=== PATIENT | male | born 1950 | race Caucasian/White ===

== ENCOUNTER 2018-01-08 07:41 | Inpatient (IN) ==
[2018-01-08] MEDS ORDERED: Lisinopril 5 MG Tablet PO ONE (08:01)
--- NOTE | 2018-01-08 08:06 | ED ---
HPI General Chief Complaint: Dizziness Stated Complaint: Vertigo Time Seen by Provider: 01/08/18 07:49 History of Present Illness HPI Narrative: Patient presents to the emergency department complaining of dizziness upon awakening and feeling lightheaded when he attempted to sit up. Patient advises that the room had a spinning sensation and he became diaphoretic. Symptoms began acutely, with nausea whenever he attempted to move too fast but no vomiting, no tinnitus, no slurred speech, no fever chills, no numbness or tingling, no vision change, no shortness of breath, no chest pain. He does report a headache times a few weeks, intermittent, dull in character, alleviated with Tylenol, radiates from occipital area to parietal area. States that 2 months ago he was diagnosed with a sinus headache and given antibiotics which alleviate the headache. Takes lisinopril 5 mg p.o. twice daily but he did not take it this morning. Related Data Home Medications Medication Instructions Recorded Confirmed lisinopril 5 mg PO BID 01/08/18 01/08/18 pravastatin 20 mg PO DAILY 01/08/18 01/08/18 Allergies Allergy/AdvReac Type Severity Reaction Status Date / Time No Known Allergies Allergy Mild Nausea Uncoded 01/08/18 07:53 Review of Systems ROS Unobtainable All other systems reviewed negative except as stated in HPI REPLACED BY [facility] Medical History Medical History Hernia (Acute) Hyperlipemia (Acute) Hypertension (Acute) Social History Social History Substance History: No History of Abuse Smoking Status: Former smoker How Often Do You Have a Drink Containing Alcohol: 2 to 4 times a month Recent Travel in [facility] within the Last 8 Weeks: No Recent Out of Country Travel within the Last 8 Weeks: No Immunization History Tetanus Immunization: <5 Years Hx Influenza Vaccine This Season: Yes Exam Narrative Exam Narrative: GENERAL: No acute distress. SKIN: Focused skin assessment warm/dry. HEAD: Atraumatic. Normocephalic. No frontal or maxillary sinus tenderness. EYES: Extraocular muscles intact bilaterally. No scleral icterus. No injection or drainage. ENT: No nasal bleeding or discharge. Mucous membranes pink and moist. NECK: Trachea midline. No JVD. CARDIOVASCULAR: Regular rate and rhythm. No murmur appreciated. RESPIRATORY: No accessory muscle use. Clear to auscultation. Breath sounds equal bilaterally. GASTROINTESTINAL: Abdomen soft, non-tender, nondistended. Hepatic and splenic margins not palpable. MUSCULOSKELETAL: No obvious deformities. No clubbing. No cyanosis. No edema. NEUROLOGICAL: Awake and alert. No obvious cranial nerve deficits. Motor grossly within normal limits. Normal speech. Positive vertigo when sitting up and moving. PSYCHIATRIC: Appropriate mood and affect; insight and judgment normal. Course Initial Documented Vital Signs Temperature 97.8 F 01/08/18 07:58 Pulse Rate 61 01/08/18 07:58 Respiratory Rate 15 01/08/18 07:58 Blood Pressure 210/93 H 01/08/18 07:58 Pulse Oximetry 97 01/08/18 07:58 Last Documented Vital Signs Temperature 97.8 F 01/08/18 07:58 Pulse Rate 61 01/08/18 07:58 Respiratory Rate 15 01/08/18 07:58 Blood Pressure 188/102 H 01/08/18 09:21 Pulse Oximetry 96 01/08/18 08:43 Medical Decision Making MDM Narrative Medical decision making narrative: Patient presents to the emergency department by EMS secondary to vertigo. Patient placed on a secured entrance monitor, continuous pulse ox, and IV access obtained. Head CT, EKG, chest x-ray, and labs ordered. Patient also given a dose of his BP med that he missed this morning lisinopril 5 mg p.o. and meclizine 25 mg p.o. for vertigo. Head CT and chest x- ray with no acute process. CBC, chem, troponin and urinalysis negative for acute abnormality. Repeat BP 188/102, patient g iven 0.1mg po clonidine, HR in mid to high 50s. Upon my reassessment, patient states that he is still somewhat nauseated and dizzy. He also advises that he has been admitted for difficult to control blood pressure. Once when he presented with hypertension and was given meds to reduce blood pressure, patient states that when he got home he passed out secondary to hypotension. As such, patient will be admitted for observation secondary to hypertensive urgency. Repeat BP at 0946 after clonidine , 177/77. Patient has been admitted for observation to Dr. Arango. Lab Data Result diagrams: 01/08/18 08:20 01/08/18 08:20 Lab Results 01/08/18 01/08/18 01/08/18 Range/Units 08:20 08:20 08:20 WBC 4.5 (4.0-11.0) th/mm3 RBC 4.70 (4.50-5.90) mil/mm3 Hgb 13.6 (13.0-17.0) gm/dL Hct 39.9 (39.0-51.0) % MCV 84.9 (80.0-100.0) fL MCH 29.0 (27.0-34.0) pg MCHC 34.2 (32.0-36.0) % RDW 13.6 (11.6-17.2) % Plt Count 192 (150-450) th/mm3 MPV 9.6 (7.0-11.0) fL Neut % (Auto) 54.3 (16.0-70.0) % Lymph % (Auto) 30.5 (9.0-44.0) % [place] % (Auto) 11.5 H (0.0-8.0) % Eos % (Auto) 2.7 (0.0-4.0) % Baso % (Auto) 1.0 (0.0-2.0) % Neut # (Auto) 2.4 (1.8-7.7) th/mm3 Lymph # (Auto) 1.4 (1.0-4.8) th/mm3 [place] # (Auto) 0.5 (0.0-0.9) th/mm3 Eos # (Auto) 0.1 (0.0-0.4) th/mm3 Baso # (Auto) 0.0 (0.0-0.2) th/mm3 WBC Differential . Differential Comment Auto diff final Sodium 140 (136-145) meq/L Potassium 4.3 (3.5-5.1) meq/L Chloride 106 (98-107) meq/L Carbon Dioxide 27.3 (21.0-32.0) meq/L Anion Gap 7 (5-15) meq/L BUN 13 (7-18) mg/dL Creatinine 1.05 (0.60-1.30) mg/dL Estimated GFR 71 L (>89) mL/min Random Glucose 91 (74-106) mg/dL Calcium 9.1 (8.5-10.1) mg/dL Total Bilirubin 0.5 (0.2-1.0) mg/dL AST 15 (15-37) U/L ALT 24 (12-78) U/L Alkaline Phosphatase 56 (45-117) U/L Troponin I Less than 0.02 L (0.02-0.05) ng/mL Total Protein 6.4 (6.4-8.2) g/dL Albumin 3.5 (3.4-5.0) g/dL Urine Color Yellow (Yellw/Straw) Urine Clarity Hazy H (Clear) Urine pH 6.0 (5.0-8.5) Ur Specific [place] 1.015 (1.002-1.035) Urine Protein Negative (Neg-Trace) mg/dL Urine Glucose (UA) Negative (Negative) mg/dL Urine Ketones Negative (Negative) mg/dL Urine Occult Blood Negative (Negative) Urine Nitrate Negative (Negative) Urine Bilirubin Negative (Negative) Urine Urobilinogen Less than 2 (Less than 2) mg/dL Ur Leukocyte Esterase Negative (Negative) Urine WBC 1 (0-5) /hpf Urine Mucus Few H (Occasional) /lpf Micro UA Comment Culture not ind Urine Culture Comments Culture not ind Imaging Data Radiologist's impression: ITS Impressions Chest X-Ray 01/08/18 08:01 CONCLUSION: Negative examination. Head CT 01/08/18 08:01 CONCLUSION: 1. Negative CT Head non contrast. 2. No evidence of acute infarct, hemorrhage, mass or edema. ECG Data EKG Prior to Arrival: No Attestation: I personally reviewed and interpreted this ECG as follows: (Sinus bradycardia, rate 55, normal axis, normal intervals, QTC 408) Discharge Plan Discharge Disposition Patient Disposition: 30 Still Patient Discharge Condition Condition: Stable Discharge Details Diagnosis: Vertigo, Hypertensive urgency Physicians Team ED Provider: Elissa Jim Primary Care Provider: Valente Crandall Attending Provider: Giacomo Arango Status ED Status: Admitted Observation Patient
--- NOTE | 2018-01-08 08:22 | XR ---
EXAM DATE: 01/08/2018 8:18 AM EDT AGE/SEX: 67 years / Male INDICATIONS: Lightheaded and dizziness. CLINICAL DATA: This is the patient's initial encounter. Patient reports that signs and symptoms have been present for 1 day and indicates a pain score of 0/10. MEDICAL/SURGICAL HISTORY: Hypertension. None. COMPARISON: No prior exams available for comparison. FINDINGS: 2 frontal views of the chest demonstrate the lungs to be symmetrically aerated without evidence of ma ss, infiltrate or effusion. The cardiomediastinal contours are unremarkable. Osseous structures are intact. CONCLUSION: Negative examination. Electronically signed by: Armando Alvarenga MD 01/08/2018 8:21 AM EDT
[2018-01-08 08:34] LABS: Eos # (Auto) 0.1 th/mm3 (0.0-0.4); Eos % (Auto) 2.7 % (0.0-4.0); Hematocrit 39.9 % (39.0-51.0); Hemoglobin 13.6 gm/dL (13.0-17.0); Lymph # (Auto) 1.4 th/mm3 (1.0-4.8); Lymph % (Auto) 30.5 % (9.0-44.0); Mean Corpuscular HGB Conc 34.2 % (32.0-36.0); Mean Corpuscular Volume 84.9 fL (80.0-100.0); Mean Platelet Volume 9.6 fL (7.0-11.0); Mono # (Auto) 0.5 th/mm3 (0.0-0.9); Mono % (Auto) 11.5 % (0.0-8.0); Neut # (Auto) 2.4 th/mm3 (1.8-7.7); Neut % (Auto) 54.3 % (16.0-70.0); Platelet Count 192 th/mm3 (150-450); Red Cell Distribution Width 13.6 % (11.6-17.2); White Blood Count 4.5 th/mm3 (4.0-11.0)
[2018-01-08 08:45] LABS: Bilirubin,Urine Negative (Negative); Clarity,Urine Hazy (Clear); Color,Urine Yellow (Yellw/Straw); Glucose,Urine (UA) Negative (Negative); Leukocyte Esterase,Urine Negative (Negative); Mucus,Urine Few /lpf (Occasional); Nitrite,Urine Negative (Negative); Specific Gravity,Urine 1.015 (1.002-1.035)
--- NOTE | 2018-01-08 08:50 | CT ---
EXAM DATE: 01/08/2018 8:46 AM EDT AGE/SEX: 67 years / Male INDICATIONS: Dizziness and nausea upon waking this morning with high blood pressure. CLINICAL DATA: This is the patient's initial encounter. Patient reports that signs and symptoms have been present for 1 day and indicates a pain score of 2/10. MEDICAL/SURGICAL HISTORY: Hypertension. None. RADIATION DOSE: 56.35 CTDI (mGy) COMPARISON: No prior exams available for comparison. TECHNIQUE: CT of the head without contrast. Using automated exposure control and adjustment of the mA and/or kV according to patient size, radiation dose was kept as low as reasonably achievable to ob tain optimal diagnostic quality images. DICOM format image data is available electronically for revi ew and comparison. FINDINGS: Cerebrum: The ventricles are normal for age. No evidence of midline shift, mass lesion, hemorrhage or acute infarction. No extraaxial fluid collections are seen. Posterior Fossa: The cerebellum and brainstem are intact. The 4th ventricle is midline. The cerebe llopontine angle is unremarkable. Extracranial: The visualized portion of the orbits is intact. Skull: The calvaria is intact. No evidence of skull fracture. CONCLUSION: 1. Negative CT Head non contrast. 2. No evidence of acute infarct, hemorrhage, mass or edema. Electronically signed by: Donny Durbin MD 01/08/2018 8:49 AM EDT
[2018-01-08 08:54] LABS: Albumin 3.5 g/dL (3.4-5.0); Anion Gap 7 meq/L (5-15); Aspartate Aminotransferase 15 U/L (15-37); Blood Urea Nitrogen 13 mg/dL (7-18); Calcium 9.1 mg/dL (8.5-10.1); Carbon Dioxide 27.3 meq/L (21.0-32.0); Chloride 106 meq/L (98-107); Glomerular Filtration Rate 71 mL/min (>89); Glucose,Random 91 mg/dL (74-106); Potassium 4.3 meq/L (3.5-5.1); Sodium 140 meq/L (136-145)
[2018-01-08 08:55] LABS: Alanine Aminotransferase 24 U/L (12-78)
[2018-01-08 08:59] LABS: Alkaline Phosphatase 56 U/L (45-117); Total Protein 6.4 g/dL (6.4-8.2)
--- NOTE | 2018-01-08 10:51 | P.HPIM ---
History of Present Illness Primary Care Physician: Valente Crandall MD Chief Complaint: Dizziness History of Present Illness: Mr Hays is a pleasant 67 y/o male with HTN, hyperlipidemia, GERD, and chronic back pain. Pt present to the ED at [facility] on 01/08/18 with complaints of dizziness and lightheadedness that began this morning upon awakening and when he attempted to sit up. Patient reports that the room was spinning abruptly with multiple attempts at sitting up in bed and he became diaphoretic. Pt experienced associated nausea whenever he attempted to move too fast but no vomiting, no tinnitus, no slurred speech, no fever/chills, no numbness or tingling, no vision change, no shortness of breath, no chest pain. He does report a headache intermittently for the last few weeks which radiates from occipital area to parietal area which was relieved with Tylenol. In the ED the pts BP was significantly elevated at 210/93. Pt normally takes Lisinopril 5mg BID but did not take it that this morning. Pt was given Lisinopril 5mg daily, Meclizine x one dose and Clonidine x one dose in the ED. Pts BP has improved to 166/72. States that 2 months ago he was diagnosed with a sinus headache and given antibiotics which alleviate the headache. 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 His bp was severely elevated. will need to exclude a cerebellar cva. His mother had a pontine cva. The exam, history, and the medical decision-making described in the above note were completed with the assistance of the mid-level provider. I reviewed and agree with the findings presented. I attest that I had a [id number] encounter with the patient on the same day, and personally performed and documented my assessment and findings in the medical record. Inpatient Certification: I certify that the inpatient services were ordered in accordance with Medicare regulations governing the order. This includes certification that hospital inpatient services are reasonable and necessary and in the case of services not specified as inpatient-only under 42 CFR 419.22(n), that they are appropriately provided as inpatient services in accordance to with the 2-midnight benchmark under 43 CFR 412.3(e) Estimated Total Length of Stay (Days): 2 Plans for Post Hospital Care: Not yet determined Review of Systems Constitutional: Denies chills, Denies fever(s), Denies lack of energy, Denies weakness Eyes: Denies change in vision, Denies double vision, Denies loss of vision Ears, Nose, Mouth, and Throat: Denies abnormal hearing, Denies change in voice, Denies ear pain, Denies nasal congestion, Denies sinus pressure, Denies sore throat Cardiovascular: Denies chest pain, Denies irregular heart rhythm, Denies lightheadedness, Denies shortness of breath, Denies shortness of breath with activity Respiratory: Denies cough, Denies shortness of breath, Denies wheezing Gastrointestinal: Reports nausea, Denies abdominal pain, Denies constipation, Denies loose stools, Denies vomiting Genitourinary: Denies urinary frequency, Denies urinary incontinence, Denies urinary urgency Musculoskeletal: Denies back pain, Denies muscle weakness, Denies numbness, Denies tingling Neurologic: Reports dizziness, Reports headache(s), Denies abnormal hearing, Denies abnormal speech, Denies behavioral changes, Denies confusion, Denies lack of coordination, Denies localized weakness, Denies loss of vision, Denies numbness Psychiatric: Denies anxiety, Denies confusion, Denies depression PMFSH - History History Provided By: Patient, [employer] / EMT - Medical History Medical History: Medical History (Last Reviewed 01/08/18 @ 13:59 by Suman Gaytan) Hernia Hyperlipemia Hypertension - Tobacco History Tobacco Use In Past 30 Days: No Smoking Status: Former smoker - Alcohol History How Often Do You Have a Drink Containing Alcohol: 2 to 4 times a month - Substance Use History Substance History: No History of Abuse - Travel History Recent Travel in the [place] Within the Last 8 Weeks: No Recent Travel Out of the Country Within the Last 8 Weeks: No - Immunization History Tetanus Immunization: <5 Years Hx Influenza Vaccine This Season: Yes Medications and Allergies Allergies Allergy/AdvReac Type Severity Reaction Status Date / Time No Known Allergies Allergy Mild Nausea Uncoded 01/08/18 07:53 Home Medications Medication Instructions Recorded Confirmed Type lisinopril 5 mg PO BID 01/08/18 01/08/18 History pravastatin 20 mg PO DAILY 01/08/18 01/08/18 History Active Medications: Active Medications Al Hydroxide/Mg Hydroxide (Milk Of Yessi Buck) 30 ml PO Q12H PRN PRN Reason: Mild Constipation Pravastatin Sodium (Pravachol) 20 mg PO DAILY [place] Senna/Docusate Sodium (Kimber-Colace) 1 tab PO BID [facility] Exam Vital signs: Vital Signs 01/08/18 07:58 01/08/18 08:43 01/08/18 09:21 Temperature 97.8 F Pulse Rate 61 Respiratory Rate 15 Blood Pressure 210/93 H 188/102 H Pulse Oximetry 97 96 01/08/18 10:23 Temperature Pulse Rate Respiratory Rate Blood Pressure 166/72 H Pulse Oximetry Intake & Output 01/07/18 01/08/18 01/08/18 18:59 06:59 18:59 Weight 79.832 kg Narrative: GENERAL: NAD, AAOx3 SKIN: Warm and dry. HEENT: Atraumatic. Normocephalic. Pupils equal and round. No scleral icterus. No injection or drainage. No nasal bleeding or discharge. Mucous membranes pink and moist. NECK: Trachea midline. No JVD. CARDIOVASCULAR: Regular, bradycardia RESPIRATORY: No accessory muscle use. Clear to auscultation. Breath sounds equal bilaterally. GASTROINTESTINAL: Abdomen soft, non-tender, nondistended. Hepatic and splenic margins not palpable. MUSCULOSKELETAL: Extremities without clubbing, cyanosis, or edema. No obvious deformities. NEUROLOGICAL: Awake and alert. No obvious cranial nerve deficits. Motor grossly within normal limits. Five out of 5 muscle strength in the arms and legs. Normal speech. PSYCHIATRIC: Appropriate mood and affect; insight and judgment normal. Results - Labs CBC & Chem 7: 01/09/18 06:03 01/09/18 06:03 Labs: Short CBC 01/08/18 Range/Units 08:20 WBC 4.5 (4.0-11.0) th/mm3 Hgb 13.6 (13.0-17.0) gm/dL Hct 39.9 (39.0-51.0) % Plt Count 192 (150-450) th/mm3 [facility] 01/08/18 08:20 Sodium 140 Potassium 4.3 Chloride 106 Carbon Dioxide 27.3 BUN 13 Creatinine 1.05 Calcium 9.1 Cardiac Enzymes 01/08/18 Range/Units 08:20 Troponin I Less than 0.02 L (0.02-0.05) ng/mL Liver Function 01/08/18 Range/Units 08:20 Total Bilirubin 0.5 (0.2-1.0) mg/dL AST 15 (15-37) U/L ALT 24 (12-78) U/L Alkaline Phosphatase 56 (45-117) U/L Albumin 3.5 (3.4-5.0) g/dL Urine 01/08/18 Range/Units 08:20 Urine Color Yellow (Yellw/Straw) Urine Clarity Hazy H (Clear) Urine pH 6.0 (5.0-8.5) Ur Specific [place] 1.015 (1.002-1.035) Urine Protein Negative (Neg-Trace) mg/dL Urine Glucose (UA) Negative (Negative) mg/dL - Imaging Impressions Chest X-Ray 01/08/18 08:01 CONCLUSION: Negative examination. Head CT 01/08/18 08:01 CONCLUSION: 1. Negative CT Head non contrast. 2. No evidence of acute infarct, hemorrhage, mass or edema. Caprini VTE Risk Assessment Caprini VTE Risk Assessment: Moderate/High Risk (score >= 2) Caprini Risk Assessment Model: Point Value = 1 Point Value = 2 Point Value = 3 Point Value = 5 Age 41-60 Minor surgery BMI > 25 kg/m2 Swollen legs Varicose veins or History of unexplained or recurrent spontaneous Oral contraceptives or hormone replacement Sepsis (< 1 month) Serious lung disease, including pneumonia (< 1 month) Abnormal pulmonary function Acute myocardial infarction Congestive heart failure (< 1 month) History of inflammatory bowel disease Medical patient at bed rest Age 61-74 Arthroscopic surgery Major open surgery (> 45 min) Laparoscopic surgery (> 45 min) Malignancy Confined to bed (> 72 hours) Immobilizing plaster cast Central venous access Age >= 75 History of VTE Family history of VTE Factor V Leiden Prothrombin [id number] Lupus anticoagulant Anticardiolipin antibodies Elevated serum homocysteine Heparin-induced thrombocytopenia Other congenital or acquired thrombophilia Stroke (< 1 month) Elective arthroplasty Hip, pelvis, or leg fracture Acute spinal cord injury (< 1 month) Prophylaxis Regimen: Total Risk Factor Score Risk Level Prophylaxis Regimen 0-1 Low Early ambulation 2 Moderate Order ONE of the following: *Sequential Compression Device (SCD) *Heparin 5000 units SQ BID 3-4 Higher Order ONE of the following medications: *Heparin 5000 units SQ TID *Enoxaparin/Lovenox 40 mg SQ daily (WT < 150 kg, CrCl > 30 mL/min) *Enoxaparin/Lovenox 30 mg SQ daily (WT < 150 kg, CrCl > 10-29 mL/min) *Enoxaparin/Lovenox 30 mg SQ BID (WT < 150 kg, CrCl > 30 mL/min) AND/OR *Sequential Compression Device (SCD) 5 or more Highest Order ONE of the following medications: *Heparin 5000 units SQ TID (Preferred with Epidurals) *Enoxaparin/Lovenox 40 mg SQ daily (WT < 150 kg, CrCl > 30 mL/min) *Enoxaparin/Lovenox 30 mg SQ daily (WT < 150 kg, CrCl > 10-29 mL/min) *Enoxaparin/Lovenox 30 mg SQ BID (WT < 150 kg, CrCl > 30 mL/min) AND *Sequential Compression Device (SCD)
[2018-01-08] MEDS ORDERED: Acetaminophen 325 MG Tablet PO PRN (13:17)
[2018-01-08] MEDS: Sod Chloride 0.9% Inj 1,000 ML IV.CONT SCH (14:33)
--- NOTE | 2018-01-08 14:58 | MR ---
EXAM DATE: 01/08/2018 2:50 PM EDT AGE/SEX: 67 years / Male INDICATIONS: Vertigo. CLINICAL DATA: This is the patient's initial encounter. Patient reports that signs and symptoms have been present for 1 day and indicates a pain score of 0/10. MEDICAL/SURGICAL HISTORY: Hypercholesterolemia. Inguinal hernia repair. Tonsillectomy. [place] [facility]AST, 01/08/2018. . TECHNIQUE: 3D [id number] MRA was performed. Source images, multiplanar STS MIP, and 3D volum e MIP reconstructions were reviewed. FINDINGS: There is excellent visualization of the major intracranial arteries out to the second-order branch ve ssels. Mild luminal irregularity is identified in the carotid siphons. The intracranial vessels otherwise demonstrate smooth luminal margins without significant steno-occlu sive disease. There is no evidence of aneurysm, vascular malformation or vasculopathy. There is no evidence of mass effect. CONCLUSION: 1. Mild atherosclerotic vascular disease involving the carotid siphons. 2. Otherwise unremarkable exam without evidence of steno-occlusive disease, aneurysm, vascular malfo rmation or vasculopathy. Electronically signed by: Donny Durbin MD 01/08/2018 2:57 PM EDT
[2018-01-08] MEDS ORDERED: Gadobutrol PF 10 MMOL/10 ML Vial (for RAD) IV.SIG ONE (14:59)
--- NOTE | 2018-01-08 14:59 | MR ---
EXAM DATE: 01/08/2018 2:51 PM EDT AGE/SEX: 67 years / Male INDICATIONS: Vertigo. CLINICAL DATA: This is the patient's initial encounter. Patient reports that signs and symptoms have been present for 1 day and indicates a pain score of 0/10. MEDICAL/SURGICAL HISTORY: Hypercholesterolemia. Skin CA. Inguinal hernia repair. Tonsillectom y. COMPARISON: No prior exams available for comparison. TECHNIQUE: Multiplanar, multisequence examination of the brain was performed without contrast. FINDINGS: MRI of the brain is performed in sagittal, axial and coronal planes. The craniocervical junction and midline structures are unremarkable. Diffusion weighted images demonstrate no abnormality. No acute c ortical infarction, acute hemorrhage, mass effect or midline shift is seen. Posterior fossa structure s are unremarkable. CONCLUSION: No evidence of acute intracranial pathology. No masses are identified. Electronically signed by: John Pedersen MD 01/08/2018 2:58 PM EDT
--- NOTE | 2018-01-08 15:02 | MR ---
EXAM DATE: 01/08/2018 2:50 PM EDT AGE/SEX: 67 years / Male INDICATIONS: Vertigo. CLINICAL DATA: This is the patient's initial encounter. Patient reports that signs and symptoms have been present for 1 day and indicates a pain score of 0/10. MEDICAL/SURGICAL HISTORY: Hypercholesterolemia. Skin CA. Inguinal hernia repair. Tonsillectom y. COMPARISON: No prior exams available for comparison. TECHNIQUE: 10 ml Gadavist (gadobutrol) contrast infused MRA (single exam dose) of the extracranial circulation was performed using a neurovascular coil. Postprocessing was performed, including rotati ng sub-volume maximum intensity projections of each carotid artery, rotating full-volume maximum inte nsity projections of both carotid arteries, sagittal and coronal sliding thin-slab reformations of ea ch carotid artery, and left oblique sliding thin-slab reformation through the aortic arch to include the origin of the arch branch vessels. FINDINGS: No abnormality is identified within the lung apices. There is normal origin of vessels from the arch without evidence of proximal stenosis. Vertebral arteries are codominant. Examination of the right common carotid artery demonstrates the vessel to be widely patent. There is 0-10% stenosis at the origin of the internal carotid artery. More distally the cervical internal puga tid artery is intact. Examination of the left common carotid artery demonstrates the vessel to be widely patent. There is 1 0-20% stenosis just beyond the origin of the left internal carotid artery origin. More distally the c ervical internal carotid artery is intact. CONCLUSION: There is 10-20% stenosis on the left. There is 0-10% stenosis on the right. No hemodynamically signif icant lesion. Percent stenosis is calculated using the diameter of the stenotic region over the diameter of the nor mal distal internal carotid artery Electronically signed by: John Pedersen MD 01/08/2018 3:01 PM [place]
--- NOTE | 2018-01-08 19:23 | ECG ---
Date Performed: 01/08/2018 Time Performed: 08:20:15 PTAGE: 67 years EKG: SINUS BRADYCARDIA BORDERLINE ECG PREVIOUS TRACING : 03/28/2006 04.52 Since the previous tracing, no significant change noted DOCTOR: Job Sanchez Interpretating Date/Time 01/08/2018 19:21:22
[2018-01-08] MEDS: Senna/Docusate Sodium 8.6/50 MG Tablet PO SCH (22:34)
[2018-01-08] MEDS: Lisinopril 5 MG Tablet PO SCH (22:34)
[2018-01-09 07:16] LABS: Baso % (Auto) 0.8 % (0.0-2.0); Eos # (Auto) 0.1 th/mm3 (0.0-0.4); Eos % (Auto) 2.7 % (0.0-4.0); Hematocrit 38.1 % (39.0-51.0); Hemoglobin 12.6 gm/dL (13.0-17.0); Lymph # (Auto) 1.3 th/mm3 (1.0-4.8); Lymph % (Auto) 28.3 % (9.0-44.0); Mean Corpuscular HGB Conc 33.2 % (32.0-36.0); Mean Corpuscular Hemoglobin 28.4 pg (27.0-34.0); Mean Corpuscular Volume 85.7 fL (80.0-100.0); Mean Platelet Volume 9.3 fL (7.0-11.0); Mono # (Auto) 0.5 th/mm3 (0.0-0.9); Mono % (Auto) 10.1 % (0.0-8.0); Neut # (Auto) 2.7 th/mm3 (1.8-7.7); Neut % (Auto) 58.1 % (16.0-70.0); Platelet Count 185 th/mm3 (150-450); Red Blood Count 4.44 mil/mm3 (4.50-5.90); Red Cell Distribution Width 14.1 % (11.6-17.2); White Blood Count 4.6 th/mm3 (4.0-11.0)
[2018-01-09] MEDS: Sod Chloride 0.9% Inj 1,000 ML IV.CONT SCH (07:32)
[2018-01-09 07:41] LABS: Alanine Aminotransferase 22 U/L (12-78); Albumin 2.9 g/dL (3.4-5.0); Alkaline Phosphatase 46 U/L (45-117); Anion Gap 8 meq/L (5-15); Aspartate Aminotransferase 10 U/L (15-37); Blood Urea Nitrogen 9 mg/dL (7-18); Calcium 8.2 mg/dL (8.5-10.1); Carbon Dioxide 25.6 meq/L (21.0-32.0); Chloride 111 meq/L (98-107); Glomerular Filtration Rate 88 mL/min (>89); Glucose,Random 90 mg/dL (74-106); Potassium 4.4 meq/L (3.5-5.1); Sodium 145 meq/L (136-145); Total Protein 5.5 g/dL (6.4-8.2)
[2018-01-09] MEDS ORDERED: Pantoprazole Sodium 20 MG DR Tablet PO SCH (09:00)
[2018-01-09] MEDS: Lisinopril 5 MG Tablet PO SCH (09:15)
[2018-01-09] MEDS: Senna/Docusate Sodium 8.6/50 MG Tablet PO SCH (09:15)
--- NOTE | 2018-01-09 10:27 | P.PNIM ---
Subjective Interval history: vertigo improved but not resolved. Physical Exam Vital signs: Vital Signs 01/08/18 10:23 01/08/18 12:08 01/08/18 14:34 Temperature Pulse Rate 52 L Respiratory Rate 18 Blood Pressure 166/72 H 137/62 158/71 H Pulse Oximetry 98 01/08/18 17:56 01/08/18 20:00 01/09/18 00:00 Temperature 97.7 F 97.6 F Pulse Rate 56 L 50 L 45 L Respiratory Rate 18 18 Blood Pressure 146/68 H 135/63 Pulse Oximetry 98 98 01/09/18 04:00 01/09/18 08:00 Temperature 97.7 F 97.3 F L Pulse Rate 53 L 62 Respiratory Rate 18 16 Blood Pressure 129/67 155/83 H Pulse Oximetry 97 97 Intake & Output 01/08/18 01/09/18 01/09/18 18:59 06:59 18:59 Intake Total 1480 / 1480 Output Total 600 / 600 Balance 880 / 880 Weight 79.832 kg 73.9 kg Intake: IV 1000 / 1000 NS Inj 1,000 ML @ 84 mls/hr IV. 1000 / 1000 CONT .[id number] [facility] Rx#:[id number] Oral 480 / 480 Output: Urine 600 / 600 Other: # Voids 2 Weight On Admission 79.832 kg heart reg lung cta abd s/nt ext no edema Results - Labs CBC & Chem 7: 01/09/18 06:03 01/09/18 06:03 Laboratory Results - last 24 hr 01/09/18 01/09/18 06:03 06:03 WBC 4.6 RBC 4.44 L Hgb 12.6 L Hct 38.1 L MCV 85.7 MCH 28.4 MCHC 33.2 RDW 14.1 Plt Count 185 MPV 9.3 Neut % (Auto) 58.1 Lymph % (Auto) 28.3 [place] % (Auto) 10.1 H Eos % (Auto) 2.7 Baso % (Auto) 0.8 Neut # (Auto) 2.7 Lymph # (Auto) 1.3 [place] # (Auto) 0.5 Eos # (Auto) 0.1 Baso # (Auto) 0.0 WBC Differential . Differential Comment Auto diff final Sodium 145 Potassium 4.4 Chloride 111 H Carbon Dioxide 25.6 Anion Gap 8 BUN 9 Creatinine 0.87 Estimated GFR 88 L Random Glucose 90 Calcium 8.2 L D Total Bilirubin 0.4 AST 10 L ALT 22 Alkaline Phosphatase 46 Total Protein 5.5 L D Albumin 2.9 L D - Imaging Impressions Head MRI 01/08/18 00:00 CONCLUSION: No evidence of acute intracranial pathology. No masses are identified. Head MRA 01/08/18 00:00 CONCLUSION: 1. Mild atherosclerotic vascular disease involving the carotid siphons. 2. Otherwise unremarkable exam without evidence of steno-occlusive disease, aneurysm, vascular malformation or vasculopathy. Neck MRA 01/08/18 00:00 CONCLUSION: There is 10-20% stenosis on the left. There is 0-10% stenosis on the right. No hemodynamically significant lesion. Percent stenosis is calculated using the diameter of the stenotic region over the diameter of the normal distal internal carotid artery Assessment and Plan - Assessment (1) Vertigo Code(s): R42 - Dizziness and giddiness Status: Acute Plan: Vertigo - The pt is a 67 y/o male with HTN, hyperlipidemia, GERD, and chronic back pain. - [place] [facility] [place] with complaints of dizziness and lightheadedness that began this morning upon awakening with the room spinning abruptly with multiple attempts at sitting up in bed and he became diaphoretic. Pt experienced associated nausea - In the ED the pts BP was significantly elevated at 210/93. - Pt was given Lisinopril 5mg daily, Meclizine x one dose and Clonidine x one dose in the ED. Pts BP has improved to 166/72. - He has had some intermittent headaches and has family hx of basilar CVA - Given his age and comorbid HTN and hyperlipidemia as well as family hx we will need to r/o cerebellar CVA - Check MRI/MRA head and neck - Keep pt on telemetry - IVF - mri/a brain and neck negative for acute cva or vascular occlusion stop ivf cont meclizine ambulate with assist and reevaluate for dc HTN Hypertensive urgency - Pts BP was quite elevated at admission. This may be related to his vertigo/ nausea and not having had his BP meds this morning but will need to r/o CVA - Pt was given Lisinopril and Clonidine in the ED and BP has improved - We will resume his dose of Lisinopril f Hyperlipidemia - Cont .home meds GERD - PPI (2) Hypertensive urgency Code(s): I16.0 - Hypertensive urgency Status: Acute (3) HTN (hypertension) Code(s): I10 - Essential (primary) hypertension Status: Acute (4) Hyperlipidemia Code(s): E78.5 - Hyperlipidemia, unspecified Status: Acute (5) GERD (gastroesophageal reflux disease) Code(s): K21.9 - Gastro-esophageal reflux disease without esophagitis Status: Acute
== END 2018-01-09 11:58 | disposition home or self-care (01) ==
LOC: NEDA 07:41 → NEPE 07:41 → N04 16:24
PROVIDERS: ADMIT Hospitalist; ATTEND Hospitalist

== ENCOUNTER 2018-06-07 13:23 | Inpatient (IN) ==
[2018-06-07] MEDS ORDERED: Morphine Inj 4 MG/ML Vial IV.PUSH ONE (13:37)
[2018-06-07 13:50] LABS: Baso % (Auto) 0.4 % (0.0-2.0); Eos % (Auto) 0.5 % (0.0-4.0); Hematocrit 39.2 % (39.0-51.0); Hemoglobin 13.4 gm/dL (13.0-17.0); Lymph # (Auto) 1.3 th/mm3 (1.0-4.8); Mean Corpuscular HGB Conc 34.3 % (32.0-36.0); Mean Corpuscular Volume 87.4 fL (80.0-100.0); Mono # (Auto) 0.6 th/mm3 (0.0-0.9); Mono % (Auto) 7.6 % (0.0-8.0); Neut # (Auto) 5.7 th/mm3 (1.8-7.7); Neut % (Auto) 74.5 % (16.0-70.0); Platelet Count 184 th/mm3 (150-450); Red Blood Count 4.49 mil/mm3 (4.50-5.90); Red Cell Distribution Width 13.7 % (11.6-17.2); White Blood Count 7.6 th/mm3 (4.0-11.0)
--- NOTE | 2018-06-07 14:01 | ED ---
HPI General Chief complaint: Chest Pain Stated complaint: chest tightness Time Seen by Provider: 06/07/18 13:36 History of Present Illness HPI narrative: 67-year-old male with history of hypertension and hyperlipidemia presents via EMS for evaluation of chest pain. Symptoms started yesterday at 4 PM while he was surfing. He describes it as a substernal chest pressure which was mild throughout the evening yesterday. Symptoms persisted this morning which prompted evaluation. He reports that he also feels "funny." He received nitro, 2 sublingual nitroglycerin en route. He reports that symptoms improved from a 6 out of 10 to a 3 out of 10. He also notes that his blood pressure was elevated in the 200/100 range this morning. He denies shortness of breath, cough, congestion, nausea, vomiting, abdominal pain, headache, dizziness, blurred vision. Reports extensive family history of coronary artery disease. No other complaints. Related Data Home Medications Medication Instructions Recorded Confirmed lisinopril 5 mg PO BID 01/08/18 06/07/18 pravastatin 20 mg PO DAILY 01/08/18 06/07/18 Allergies Allergy/AdvReac Type Severity Reaction Status Date / Time No Known Allergies Allergy Verified 06/07/18 13:39 Review of Systems ROS: all other systems reviewed are negative [facility] Medical History Medical History Skin cancer (Acute) Hernia (Acute) Hyperlipemia (Acute) Hypertension (Acute) Social History Social History Substance History: No History of Abuse Second Hand Smoke Exposure: No Smoking Status: Former smoker Tobacco Type: Cigarettes How Often Do You Have a Drink Containing Alcohol: 4 or more times a week Recent Travel in [facility] within the Last 8 Weeks: No Recent Out of Country Travel within the Last 8 Weeks: No Immunization History Tetanus Immunization: Unsure Exam Narrative Exam Narrative: GENERAL: Well-developed well-nourished male in no acute distress SKIN: Warm and dry. HEAD: Atraumatic. Normocephalic. EYES: Pupils equal and round. No scleral icterus. No injection or drainage. ENT: No nasal bleeding or discharge. Mucous membranes pink and moist. NECK: Trachea midline. No JVD. CARDIOVASCULAR: Regular rate and rhythm. No murmur appreciated. RESPIRATORY: No accessory muscle use. Clear to auscultation. Breath sounds equal bilaterally. GASTROINTESTINAL: Abdomen soft, non-tender, nondistended. Hepatic and splenic margins not palpable. MUSCULOSKELETAL: No obvious deformities. No clubbing. No cyanosis. No edema. NEUROLOGICAL: Awake and alert. No obvious cranial nerve deficits. Motor grossly within normal limits. Normal speech. PSYCHIATRIC: Appropriate mood and affect; insight and judgment normal. Course Initial Documented Vital Signs Pulse Rate 75 06/07/18 13:32 Respiratory Rate 14 06/07/18 13:32 Blood Pressure 200/91 H 06/07/18 13:32 Pulse Oximetry 98 06/07/18 13:32 Last Documented Vital Signs Pulse Rate 67 06/07/18 15:15 Respiratory Rate 15 06/07/18 15:15 Blood Pressure 180/84 H 06/07/18 15:15 Pulse Oximetry 99 06/07/18 15:15 Medical Decision Making JOSE Attestation JOSE supervised visit: Yes Attestation: I, Dr. Herrmann, have reviewed the advance practice practitioner's documentation and am in agreement, met with the patient face to face, made the diagnosis, and the medical decision making was done by me. *My assessment and Findings: Pt with NSTEMI, Tn 3. Pt is hemodynamically normal with managed CP in ED. Plan for admission with IV heparin. Call to Dr Roy of cardiology pending, likely cath today. MDM Narrative Medical decision making narrative: The patient was placed on ECG monitoring pulse oximetry. A 12-lead EKG was obtained revealing sinus rhythm with a rate of 64, T wave inversions noted in the septal leads. No ST elevation. Lab work , chest x-ray ordered. The patient will be given 1 additional sublingual nitroglycerin as well as morphine. Upon reexamination blood pressure is improved, pain is nearly completely resolved. His lab work is been reviewed. Troponin is greater than 3, most consistent with nstemi in the presence of his symptoms. Heparin bolus/drip initiated. He denies any recent bleeding, black or tarry stools. He will be admitted, cardiology consult. Medical Screen Exam Complete: Yes Emergency Medical Condition: Yes Differential Diagnosis Differential Diagnosis: Acute coronary syndrome, angina, aortic dissection, hypertensive urgency, pneumothorax, pericarditis, myocarditis Lab Data Result diagrams: 06/07/18 13:35 06/07/18 13:35 Lab Results 06/07/18 06/07/18 06/07/18 Range/Units 13:35 13:35 13:35 WBC 7.6 (4.0-11.0) th/mm3 RBC 4.49 L (4.50-5.90) mil/mm3 Hgb 13.4 (13.0-17.0) gm/dL Hct 39.2 (39.0-51.0) % MCV 87.4 (80.0-100.0) fL MCH 30.0 (27.0-34.0) pg MCHC 34.3 (32.0-36.0) % RDW 13.7 (11.6-17.2) % Plt Count 184 (150-450) th/mm3 MPV 9.0 (7.0-11.0) fL Neut % (Auto) 74.5 H (16.0-70.0) % Lymph % (Auto) 17.0 (9.0-44.0) % [place] % (Auto) 7.6 (0.0-8.0) % Eos % (Auto) 0.5 (0.0-4.0) % Baso % (Auto) 0.4 (0.0-2.0) % Neut # (Auto) 5.7 (1.8-7.7) th/mm3 Lymph # (Auto) 1.3 (1.0-4.8) th/mm3 [place] # (Auto) 0.6 (0.0-0.9) th/mm3 Eos # (Auto) 0.0 (0.0-0.4) th/mm3 Baso # (Auto) 0.0 (0.0-0.2) th/mm3 WBC Differential . Differential Comment Auto diff final PT 10.4 (9.8-11.6) sec INR 1.0 Ratio APTT 25.4 (23.4-31.7) sec Sodium 136 (136-145) meq/L Potassium 4.1 (3.5-5.1) meq/L Chloride 101 (98-107) meq/L Carbon Dioxide 31.1 (21.0-32.0) meq/L Anion Gap 4 L (5-15) meq/L BUN 9 (7-18) mg/dL Creatinine 1.15 (0.60-1.30) mg/dL Estimated GFR 64 L (>89) mL/min Random Glucose 125 H (74-106) mg/dL Calcium 8.4 L (8.5-10.1) mg/dL Magnesium 2.1 (1.5-2.5) mg/dL Total Bilirubin 0.3 (0.2-1.0) mg/dL AST 29 (15-37) U/L ALT 27 (12-78) U/L Alkaline Phosphatase 61 (45-117) U/L Total Creatine Kinase 278 (39-308) U/L CK-MB (CK-2) 12.5 H (0.5-3.6) ng/mL Troponin I 3.30 H* (0.02-0.05) ng/mL Total Protein 6.6 (6.4-8.2) g/dL Albumin 3.5 (3.4-5.0) g/dL Imaging Data Radiologist's impression: Chest X-Ray 06/07/18 13:37 CONCLUSION: Negative for acute process Discharge Plan Discharge Disposition Patient Disposition: ED Admit(ED Internal Use Only) Discharge Condition Condition: Stable Discharge Order Discharge Orders: ED Use Only Admit Order (Routine); Ordered 06/07/18 Ordered By: Wai Ribeiro Discharge Details Diagnosis: Non-ST elevation [place] (NSTEMI) Physicians Team ED Provider: Srini Gracia ED Midlevel Provider: Wai Ribeiro Primary Care Provider: Valente Crandall Rxs /Orders / Referrals /Forms Prescriptions: No Action pravastatin 20 mg Tablet 20 mg PO DAILY RF: 0 lisinopril 5 mg Tablet 5 mg PO BID RF: 0 Discharge Instructions Patient Printed Instructions: Chest Pain (ED) Status ED Status: With Doctor
[2018-06-07 14:09] LABS: Alanine Aminotransferase 27 U/L (12-78); Albumin 3.5 g/dL (3.4-5.0); Anion Gap 4 meq/L (5-15); Aspartate Aminotransferase 29 U/L (15-37); Blood Urea Nitrogen 9 mg/dL (7-18); Calcium 8.4 mg/dL (8.5-10.1); Carbon Dioxide 31.1 meq/L (21.0-32.0); Chloride 101 meq/L (98-107); Glomerular Filtration Rate 64 mL/min (>89); Glucose,Random 125 mg/dL (74-106); Magnesium 2.1 mg/dL (1.5-2.5); Potassium 4.1 meq/L (3.5-5.1); Sodium 136 meq/L (136-145)
[2018-06-07 14:13] LABS: Alkaline Phosphatase 61 U/L (45-117); Creatine Kinase 278 U/L (39-308); Total Protein 6.6 g/dL (6.4-8.2)
--- NOTE | 2018-06-07 14:23 | XR ---
EXAM DATE: 06/07/2018 2:14 PM EST AGE/SEX: 67 years / Male INDICATIONS: Chest pain and hypertension. CLINICAL DATA: This is the patient's subsequent encounter. Patient reports that signs and symptoms h ave been present for 2 days and indicates a pain score of 3/10. MEDICAL/SURGICAL HISTORY: Hypertension. None. COMPARISON: [facility] [place] 1[place] SINGLE AP, 01/08/2018. . FINDINGS: A single AP view of the chest demonstrates the lungs to be symmetrically aerated without evidence of mass, infiltrate or effusion. The cardiomediastinal contours are unremarkable. Osseous structures a re intact. CONCLUSION: Negative for acute process Electronically signed by: Alfredo Simms MD 06/07/2018 2:21 PM EST
[2018-06-07 14:36] LABS: Creatine Kinase MB 12.5 ng/mL (0.5-3.6)
[2018-06-07] MEDS ORDERED: Heparin Drip 25,000 UNIT/250 ML BAG IV.CONT PRN (14:41)
[2018-06-07] MEDS ORDERED: Heparin 10,000 UNITS/10 ML Vial (for IV use) IV.PUSH STA (14:41)
[2018-06-07 14:59] LABS: Activated Partial Thrombo Time 25.4 sec (23.4-31.7); Prothrombin Time 10.4 sec (9.8-11.6)
[2018-06-07] MEDS ORDERED: Acetaminophen 325 MG Tablet PO PRN (15:50)
--- NOTE | 2018-06-07 15:56 | P.HPIM ---
History of Present Illness Primary Care Physician: Valente Crandall MD Chief Complaint: chest pain History of Present Illness: Mr Hays is a pleasant 67 y/o male with HTN, hyperlipidemia, GERD, and chronic back pain. Pt present to the ED for evaluation of chest pain. Symptoms started yesterday at 4 PM while he was surfing. He describes it as a constant substernal chest pressure which was mild throughout the evening yesterday. Symptoms persisted this morning which prompted evaluation. He reports he does not feel like himself. He received nitro, 2 sublingual nitroglycerin en route. He reports that symptoms improved from a 6 out of 10 to a 3 out of 10. He also notes that his blood pressure was elevated in the 200/100 range this morning. He denies shortness of breath, cough, congestion, nausea, vomiting, abdominal pain, headache, dizziness, blurred vision. Reports extensive family history of coronary artery disease. No other complaints. EKG on admission: sinus rhythm with a rate of 64, T wave inversions noted in the septal leads. No ST elevation. Troponin on admission: 3.30 Past Medical hx HTN Hyperlipidemia GERD Chronic back pain Shoulder pain Hx of sciatica Past Surgical Hx None Family Hx Mother had a basilar artery CVA at 48 y/o Social Hx (+)Alcohol, one glass of red wine per night Denies any tobacco or illicit drug use Inpatient Certification Inpatient Certification: I certify that the inpatient services were ordered in accordance with Medicare regulations governing the order. This includes certification that hospital inpatient services are reasonable and necessary and in the case of services not specified as inpatient-only under 42 CFR 419.22(n), that they are appropriately provided as inpatient services in accordance to with the 2-midnight benchmark under 43 CFR 412.3(e) Estimated Total Length of Stay (Days): 3 Plans for Post Hospital Care: Home Medications and Allergies Allergies Allergy/AdvReac Type Severity Reaction Status Date / Time No Known Allergies Allergy Verified 06/07/18 13:39 Home Medications Medication Instructions Recorded Confirmed Type lisinopril 5 mg PO BID 01/08/18 06/07/18 History pravastatin 20 mg PO DAILY 01/08/18 06/07/18 History Active Medications: Active Medications Acetaminophen (Tylenol) 650 mg PO Q4H PRN PRN Reason: Temp > 100.4 Al Hydroxide/Mg Hydroxide (Milk Of Magnesia Liq) 30 ml PO Q12H PRN PRN Reason: Mild Constipation Aspirin (Aspirin) 325 mg PO DAILY [facility] Heparin Sodium/Dextrose (Heparin/D5w 25,000 U/250 Ml) 25,000 unit in 250 mls @ 0 mls/hr IV.CONT TITRATE PRN; Protocol PRN Reason: Per Protocol Last Admin: 06/07/18 15:15 Dose: 900 units/hr, 9 mls/hr Sodium Chloride (Ns Inj) 1,000 mls @ 75 mls/hr IV.CONT .[id number] [facility] Ondansetron HCl (Zofran Inj) 4 mg IV.PUSH Q6H PRN PRN Reason: NAUSEA OR VOMITING Senna/Docusate Sodium (Kimber-Colace) 1 tab PO BID [facility] Sennosides (Senokot) 17.2 mg PO Q12H PRN PRN Reason: Moderate Constipation Sodium Chloride (Ns Flush) 2 ml IV.FLUSH UNSCH PRN PRN Reason: FLUSH AFTER USING IV ACCESS Last Admin: 06/07/18 13:54 Dose: 2 ml Sodium Chloride (Ns Flush) 2 ml IV.FLUSH BID [place] Sodium Chloride (Ns Flush) 2 ml IV.FLUSH PRN PRN PRN Reason: FLUSH AFTER USING IV ACCESS Physical Exam Vital signs: Last Vital Signs Pulse 67 06/07/18 15:15 Resp 15 06/07/18 15:15 BP 180/84 H 06/07/18 15:15 Pulse Ox 99 06/07/18 15:15 Narrative: GENERAL: This is a well-nourished, well-developed patient, in no apparent distress. CARDIOVASCULAR: Regular rate and rhythm RESPIRATORY: Clear to auscultation. Breath sounds equal bilaterally. No wheezes , rales, or rhonchi. GASTROINTESTINAL: Abdomen soft, non-tender, nondistended. Normal active bowel sounds MUSCULOSKELETAL: Extremities without clubbing, cyanosis, or edema. NEURO: Alert & Oriented x4 to person, place, time, situation. Moves all ext x4 Results Labs CBC & Chem 7: 06/07/18 13:35 06/07/18 13:35 Caprini VTE Risk Assessment Caprini VTE Risk Assessment: No/Low Risk (score <= 1) Caprini Risk Assessment Model: Point Value = 1 Point Value = 2 Point Value = 3 Point Value = 5 Age 41-60 Minor surgery BMI > 25 kg/m2 Swollen legs Varicose veins or History of unexplained or recurrent spontaneous Oral contraceptives or hormone replacement Sepsis (< 1 month) Serious lung disease, including pneumonia (< 1 month) Abnormal pulmonary function Acute myocardial infarction Congestive heart failure (< 1 month) History of inflammatory bowel disease Medical patient at bed rest Age 61-74 Arthroscopic surgery Major open surgery (> 45 min) Laparoscopic surgery (> 45 min) Malignancy Confined to bed (> 72 hours) Immobilizing plaster cast Central venous access Age >= 75 History of VTE Family history of VTE Factor V Leiden Prothrombin [id number] Lupus anticoagulant Anticardiolipin antibodies Elevated serum homocysteine Heparin-induced thrombocytopenia Other congenital or acquired thrombophilia Stroke (< 1 month) Elective arthroplasty Hip, pelvis, or leg fracture Acute spinal cord injury (< 1 month) Prophylaxis Regimen: Total Risk Factor Score Risk Level Prophylaxis Regimen 0-1 Low Early ambulation 2 Moderate Order ONE of the following: *Sequential Compression Device (SCD) *Heparin 5000 units SQ BID 3-4 Higher Order ONE of the following medications: *Heparin 5000 units SQ TID *Enoxaparin/Lovenox 40 mg SQ daily (WT < 150 kg, CrCl > 30 mL/min) *Enoxaparin/Lovenox 30 mg SQ daily (WT < 150 kg, CrCl > 10-29 mL/min) *Enoxaparin/Lovenox 30 mg SQ BID (WT < 150 kg, CrCl > 30 mL/min) AND/OR *Sequential Compression Device (SCD) 5 or more Highest Order ONE of the following medications: *Heparin 5000 units SQ TID (Preferred with Epidurals) *Enoxaparin/Lovenox 40 mg SQ daily (WT < 150 kg, CrCl > 30 mL/min) *Enoxaparin/Lovenox 30 mg SQ daily (WT < 150 kg, CrCl > 10-29 mL/min) *Enoxaparin/Lovenox 30 mg SQ BID (WT < 150 kg, CrCl > 30 mL/min) AND *Sequential Compression Device (SCD) Assessment and Plan Plan Mr Hays is a pleasant 67 y/o male with HTN, hyperlipidemia, GERD, and chronic back pain. Pt present to the ED for evaluation of chest pain. Symptoms started yesterday at 4 PM while he was surfing. He describes it as a constant substernal chest pressure which was mild throughout the evening yesterday. Symptoms persisted this morning which prompted evaluation. He reports that he not like himself. He received nitro, 2 sublingual nitroglycerin en route. He reports that symptoms improved from a 6 out of 10 to a 3 out of 10. He also notes that his blood pressure was elevated in the 200/100 range this morning. Patient also reports that he increased his bench press weight recently also. He denies shortness of breath, cough, congestion, nausea, vomiting, abdominal pain, headache, dizziness, blurred vision. Reports extensive family history of coronary artery disease. No other complaints. NSTEMI EKG on admission: sinus rhythm with a rate of 64, T wave inversions noted in the septal leads. No ST elevation. Troponin on admission: 3.30 Heparin drip started in ER, continue Consult cardiology, ER provider spoke with cardiology - Patient NPO after midnight plan to take to center medical and lab director in AM serial troponin aspirin now and daily Metoprolol 25 mg PO BID Nitro paste Lipid profile in AM HTN Continue home lisinopril 5 mg daily Hyperlipidemia continue patient's home pravastatin 20 mg PO daily Lipid profile in AM GERD Protonix DVT prophylaxis patient on heparin drip
[2018-06-07] MEDS: Aspirin 325 MG Tablet PO SCH (16:31)
[2018-06-07] MEDS: Sod Chloride 0.9% Inj 1,000 ML IV.CONT SCH (20:00)
[2018-06-07] MEDS: Senna/Docusate Sodium 8.6/50 MG Tablet PO SCH (20:00)
[2018-06-07] MEDS: Lisinopril 5 MG Tablet PO SCH (20:00)
[2018-06-07] MEDS ORDERED: Metoprolol Tartrate 25 MG Tablet PO SCH (21:00)
[2018-06-08 05:00] LABS: Baso % (Auto) 0.5 % (0.0-2.0); Eos # (Auto) 0.1 th/mm3 (0.0-0.4); Eos % (Auto) 1.6 % (0.0-4.0); Hematocrit 40.3 % (39.0-51.0); Hemoglobin 13.5 gm/dL (13.0-17.0); Lymph # (Auto) 1.7 th/mm3 (1.0-4.8); Lymph % (Auto) 22.4 % (9.0-44.0); Mean Corpuscular HGB Conc 33.4 % (32.0-36.0); Mean Corpuscular Hemoglobin 29.1 pg (27.0-34.0); Mean Corpuscular Volume 87.1 fL (80.0-100.0); Mean Platelet Volume 9.5 fL (7.0-11.0); Mono # (Auto) 0.6 th/mm3 (0.0-0.9); Mono % (Auto) 8.5 % (0.0-8.0); Neut # (Auto) 5.1 th/mm3 (1.8-7.7); Platelet Count 186 th/mm3 (150-450); Red Blood Count 4.63 mil/mm3 (4.50-5.90); Red Cell Distribution Width 13.5 % (11.6-17.2); White Blood Count 7.6 th/mm3 (4.0-11.0)
[2018-06-08 05:19] LABS: Calcium 8.5 mg/dL (8.5-10.1); Carbon Dioxide 30.9 meq/L (21.0-32.0); Potassium 4.2 meq/L (3.5-5.1)
[2018-06-08 05:22] LABS: Chol/HDL Ratio 3.58 Ratio; HDL Cholesterol 55.3 mg/dL (40.0-60.0)
--- NOTE | 2018-06-08 08:32 | ECG ---
Date Performed: 06/07/2018 Time Performed: 18:31:07 PTAGE: 67 years EKG: SINUS BRADYCARDIA SEPTAL MYOCARDIAL INFARCTION ABNORMAL ECG INTERPRETATION BASED ON A DEFAU LT AGE OF 40 YEARS PREVIOUS TRACING : 06/07/2018 13.33 DOCTOR: Phani Wynn Interpretating Date/Time 06/08/2018 08:28:54
--- NOTE | 2018-06-08 08:41 | P.CONCA ---
History of Present Illness Primary Care Provider: Valente Crandall MD Chief Complaint: chest pain History of Present Illness: 67-year-old male with HTN, HLD, vertigo who presented for chest pain. The patient reports that Thursday he was surfing and afterwards developed mild chest discomfort that persisted overnight. He states he went to the gym Thursday morning and did weight lifting, but did not feel well and did not do cardio. He had severe chest pain at lunchtime with associated headache, checked his BP which was 200/100 so he went to the ED for evaluation. He is normally very active doing cardio with treadmill, row machine, surfing several times a week as well as weight lifting. He has noticed over the past few weeks that he has been more winded with activity than normal. Upon presentation to the ED his EKG showed NSR with septal Q waves. Troponin 3.30->4.72->3.86. Started on metoprolol, Nitropaste, heparin GTT. No chest pain currently. Has been taking baby aspirin daily. Quit smoking about 18 years ago. Reports family history with father with peripheral bypass surgery at age 49 and aortic aneurysm, mother with basilar CVA age 48, brother CABG early 50s. Review of Systems All other systems reviewed negative except as stated in HPI PMFSH - History History Provided By: Patient - Medical History Medical History: Medical History (Last Updated 06/07/18 @ 13:34 by Tayla Singleton RN) Skin cancer Hernia Hyperlipemia Hypertension - Tobacco History Second Hand Smoke Exposure: No Tobacco Use In Past 30 Days: No Smoking Status: Former smoker Tobacco Type: Cigarettes - Alcohol History How Often Do You Have a Drink Containing Alcohol: Monthly or less - Substance Use History Substance History: No History of Abuse - Travel History Recent Travel in the [place] Within the Last 8 Weeks: No Recent Travel Out of the Country Within the Last 8 Weeks: No - Immunization History Tetanus Immunization: Unsure Medications and Allergies Allergies Allergy/AdvReac Type Severity Reaction Status Date / Time No Known Allergies Allergy Verified 06/07/18 13:39 Home Medications Medication Instructions Recorded Confirmed Type lisinopril 5 mg PO BID 01/08/18 06/07/18 History pravastatin 20 mg PO DAILY 01/08/18 06/07/18 History Active Medications: Active Medications Acetaminophen (Tylenol) 650 mg PO Q4H PRN PRN Reason: Temp > 100.4 Al Hydroxide/Mg Hydroxide (Milk Of Yessi Buck) 30 ml PO Q12H PRN PRN Reason: Mild Constipation Aspirin (Aspirin) 325 mg PO DAILY [facility] Last Admin: 06/07/18 16:31 Dose: Not Given Heparin Sodium/Dextrose (Heparin/D5w 25,000 U/250 Ml) 25,000 unit in 250 mls @ 0 mls/hr IV.CONT TITRATE PRN; Protocol PRN Reason: Per Protocol Last Admin: 06/07/18 15:15 Dose: 900 units/hr, 9 mls/hr Sodium Chloride (Ns Inj) 1,000 mls @ 75 mls/hr IV.CONT .[id number] [facility] Last Admin: 06/07/18 20:00 Dose: 75 mls/hr Lisinopril (Prinivil) 5 mg PO BID [facility] Last Admin: 06/07/18 20:00 Dose: 5 mg Metoprolol Tartrate (Lopressor) 25 mg PO BID [facility] Last Admin: 06/07/18 20:00 Dose: 25 mg Nitroglycerin (Nitro-Bid 2% Oint) 0.5 inch TOPICAL Q6HR [facility] Last Admin: 06/07/18 19:59 Dose: 0.5 inch Ondansetron HCl (Zofran Inj) 4 mg IV.PUSH Q6H PRN PRN Reason: NAUSEA OR VOMITING Pravastatin Sodium (Pravachol) 20 mg PO DAILY [facility] Senna/Docusate Sodium (Kimber-Colace) 1 tab PO BID [facility] Last Admin: 06/07/18 20:00 Dose: Not Given Sennosides (Senokot) 17.2 mg PO Q12H PRN PRN Reason: Moderate Constipation Sodium Chloride (Ns Flush) 2 ml IV.FLUSH BID [facility] Last Admin: 06/07/18 22:48 Dose: 2 ml Sodium Chloride (Ns Flush) 2 ml IV.FLUSH PRN PRN PRN Reason: FLUSH AFTER USING IV ACCESS Exam Vital signs: Vital Signs 06/07/18 13:32 06/07/18 13:35 06/07/18 14:41 Temperature Pulse Rate 75 74 71 Respiratory Rate 14 12 15 Blood Pressure 200/91 H 185/97 H 155/73 H Pulse Oximetry 98 99 99 06/07/18 15:15 06/07/18 20:00 06/07/18 20:04 Temperature Pulse Rate 67 66 Respiratory Rate 15 15 Blood Pressure 180/84 H 167/84 H Pulse Oximetry 99 96 99 06/07/18 23:03 06/08/18 00:00 06/08/18 01:00 Temperature 97.7 F Pulse Rate 50 L 49 L 42 L Respiratory Rate 19 16 Blood Pressure 150/72 H 167/86 H Pulse Oximetry 100 99 06/08/18 02:00 06/08/18 03:00 06/08/18 04:00 Temperature Pulse Rate 44 L 44 L 50 L Respiratory Rate Blood Pressure Pulse Oximetry 06/08/18 05:00 06/08/18 07:00 Temperature 97.8 F Pulse Rate 46 L 49 L Respiratory Rate 16 Blood Pressure 144/66 H Pulse Oximetry 99 Intake & Output 06/07/18 06/08/18 06/08/18 18:59 06:59 18:59 Intake Total 240 / 240 Output Total 1000 / 1000 Balance -760 / -760 Weight 160 lb 166 lb 7.184 oz Intake: Oral 240 / 240 Output: Urine 1000 / 1000 Other: Date of Last Bowel Movement 06/07/18 Narrative: GENERAL: Well-developed well-nourished. In no acute distress. NECK: No carotid bruits. No JVD. CARDIOVASCULAR: Regular rate and rhythm. No murmur appreciated. RESPIRATORY: No accessory muscle use. Clear to auscultation. Breath sounds equal bilaterally. MUSCULOSKELETAL: No clubbing or cyanosis. No edema. NEUROLOGICAL: Awake and alert. Normal speech. Results 06/08/18 04:11 06/08/18 04:11 Cardiac Enzymes 06/07/18 06/07/18 06/07/18 Range/Units 13:35 16:15 22:40 AST 29 (15-37) U/L CK-MB (CK-2) 12.5 H (0.5-3.6) ng/mL Troponin I 3.30 H* 4.72 H* 3.86 H* (0.02-0.05) ng/mL Coagulation 06/07/18 06/07/18 06/08/18 Range/Units 13:35 21:15 04:11 PT 10.4 (9.8-11.6) sec APTT 25.4 50.6 H D 42.9 H (23.4-31.7) sec Lipids 06/08/18 Range/Units 04:11 Triglycerides 113 (42-150) mg/dL Cholesterol 198 (120-200) mg/dL HDL Cholesterol 55.3 (40.0-60.0) mg/dL Cholesterol/HDL Ratio 3.58 Ratio CBC 06/07/18 06/08/18 Range/Units 13:35 04:11 WBC 7.6 7.6 (4.0-11.0) th/mm3 RBC 4.49 L 4.63 (4.50-5.90) mil/mm3 Hgb 13.4 13.5 (13.0-17.0) gm/dL Hct 39.2 40.3 (39.0-51.0) % Plt Count 184 186 (150-450) th/mm3 Neut # (Auto) 5.7 5.1 (1.8-7.7) th/mm3 Lymph # (Auto) 1.3 1.7 (1.0-4.8) th/mm3 [place] # (Auto) 0.6 0.6 (0.0-0.9) th/mm3 Eos # (Auto) 0.0 0.1 (0.0-0.4) th/mm3 Baso # (Auto) 0.0 0.0 (0.0-0.2) th/mm3 Comprehensive Metabolic Panel 06/07/18 06/08/18 Range/Units 13:35 04:11 Sodium 136 140 (136-145) meq/L Potassium 4.1 4.2 (3.5-5.1) meq/L Chloride 101 105 (98-107) meq/L Carbon Dioxide 31.1 30.9 (21.0-32.0) meq/L BUN 9 10 (7-18) mg/dL Creatinine 1.15 1.09 (0.60-1.30) mg/dL Calcium 8.4 L 8.5 (8.5-10.1) mg/dL AST 29 (15-37) U/L ALT 27 (12-78) U/L Alkaline Phosphatase 61 (45-117) U/L Total Protein 6.6 (6.4-8.2) g/dL Albumin 3.5 (3.4-5.0) g/dL Intake and Output 12/10/18 12/11/18 12/11/18 22:59 06:59 14:59 Intake Total 240 / 240 Output Total 750 / 750 250 / 250 Balance -750 / -750 - Intake: Oral 240 / 240 Output: Urine 750 / 750 250 / 250 Other: Date of Last Bowel Movement 06/07/18 Weight 166 lb 7.184 oz - Imaging and Cardiology Imaging: Impressions Chest X-Ray 06/07/18 13:37 CONCLUSION: Negative for acute process Assessment and Plan - Plan 67-year-old male with HTN, HLD, vertigo who presented for chest pain NSTEMI: N.p.o. for [facility] today, discuss risk/benefits/alternatives, patient agreeable. Continue heparin GTT for now. Continue aspirin. Continue Nitropaste for now. Decrease metoprolol to 12.5 mg twice daily, although may not tolerate due to resting bradycardia. Change pravastatin to atorvastatin 40 mg with LDL 120. Discussed Condition With: Patient, RN, Dr. Wynn - Attending Attestation Left heart catheterizationthere was no significant obstructive coronary disease. Likely demand mediated event. Guideline directed medical therapy. Discharge planning.
--- NOTE | 2018-06-08 08:50 | P.PNIM ---
Subjective Interval history: no cp now. Physical Exam Vital signs: Last Vital Signs Temp 97.8 F 06/08/18 05:00 Pulse 49 L 06/08/18 07:00 Resp 16 06/08/18 05:00 BP 144/66 H 06/08/18 05:00 Pulse Ox 99 06/08/18 05:00 Narrative: heart reg lung cta abds/nt ext no edema Results Labs CBC & Chem 7: 06/08/18 04:11 06/08/18 04:11 Assessment and Plan Plan Mr Hays is a pleasant 67 y/o male with HTN, hyperlipidemia, GERD, and chronic back pain. Pt present to the ED for evaluation of chest pain. Symptoms started yesterday at 4 PM while he was surfing. He describes it as a constant substernal chest pressure which was mild throughout the evening yesterday. Symptoms persisted this morning which prompted evaluation. He reports that he not like himself. He received nitro, 2 sublingual nitroglycerin en route. He reports that symptoms improved from a 6 out of 10 to a 3 out of 10. He also notes that his blood pressure was elevated in the 200/100 range this morning. Patient also reports that he increased his bench press weight recently also. He denies shortness of breath, cough, congestion, nausea, vomiting, abdominal pain, headache, dizziness, blurred vision. Reports extensive family history of coronary artery disease. No other complaints. NSTEMI EKG on admission: sinus rhythm with a rate of 64, T wave inversions noted in the septal leads. No ST elevation. Troponin elevated Pt on heparin gtt, bb, melissa, asa, statin, nitro paste lower bb due to rose going for [facility] today. HTN Continue home lisinopril 5 mg daily Hyperlipidemia continue patient's home pravastatin 20 mg PO daily GERD Protonix DVT prophylaxis patient on heparin drip Progress Note: Quality VTE Deep Vein Thrombosis/Pulmonary Embolism Present on Admission: No
--- NOTE | 2018-06-08 09:37 | ECG ---
Date Performed: 06/07/2018 Time Performed: 13:33:27 PTAGE: 67 years EKG: Sinus rhythm POSSIBLE LEFT ATRIAL ENLARGEMENT SEPTAL MYOCARDIAL INFARCTION ABNORMAL ECG PREVIOUS TRACING : 01/08/2018 08.20 DOCTOR: Phani Wynn Interpretating Date/Time 06/08/2018 09:36:04
[2018-06-08] MEDS: Lisinopril 5 MG Tablet PO SCH ×2 (09:41→22:30)
[2018-06-08] MEDS: Aspirin 325 MG Tablet PO SCH (09:41)
[2018-06-08] MEDS: Senna/Docusate Sodium 8.6/50 MG Tablet PO SCH ×2 (09:41→22:32)
[2018-06-08] MEDS: Metoprolol Tartrate 25 MG Tablet PO SCH ×2 (09:43→22:31)
[2018-06-08] MEDS ORDERED: Heparin 10,000 UNITS/10 ML Vial (for IV use) ONE ×2 (10:41→12:15)
[2018-06-08] MEDS ORDERED: Heparin/NS PF Inj 500 ML ONE (10:41)
[2018-06-08] MEDS ORDERED: Heparin/NS PF Inj 1,000 ML ONE (12:14)
[2018-06-08] MEDS ORDERED: fentaNYL Citrate Inj 100 MCG/2 ML Ampul ONE (12:14)
[2018-06-08] MEDS ORDERED: Lidocaine 1% Inj 50 ML Vial ONE (12:17)
--- NOTE | 2018-06-08 12:48 | P.PCN ---
Date of procedure: 06/08/18 Pre-op diagnosis: Non-ST elevation myocardial infarction Procedure: dowel inserting machine operator: Al Wynn MD Procedures performed: 1. Fluoroscopy with interpretation 2. Coronary angiography Methods: Risks, benefits, and alternatives were discussed with the patient. Patient understood and consented to the procedure. Patient was brought into the cardiac catheterization lab and placed on the catheterization table. The patient's right wrist was prepped and draped in a sterile fashion. The right wrist was anesthetized with 1% lidocaine. Right wrist was cannulated and a 6 Palau[place] 11 cm sheath was placed without difficulty. 200 mcg of intra-arterial nitroglycerin was administered and 5000 units of intravenous heparin. Coronary angiography: The left main coronary artery was selectively engaged with a 5 Palauan JL 3.5 Juan catheter. The right coronary circulation was selectively engaged with a 5 Pal[place] JR 5 Juan catheter. 1. Left main coronary artery has minor luminal irregularities 2. Left anterior descending coronary artery has a steep angulated takeoff with 30% ostial stenosis. The remainder the vessel is tortuous and has minor luminal irregularities. 3. Left circumflex coronary artery has an angulated takeoff with a 30% ostial stenosis remainder the vessel has minor luminal irregularities. 4. Right coronary is a dominant vessel giving rise to the posterior descending branch. The right coronary artery has mild to moderate proximal stenosis of about 30%. Conclusions: 1. Mild to moderate nonobstructive coronary artery disease Plan: Guideline directed medical therapy. Sheath removed and Hemoband applied. Monitor for postprocedural complications.
--- NOTE | 2018-06-08 12:51 | CATHPROC ---
[employer] HIS Report Study Information Study Number Admission Scheduled Start Study Start [id number] Jun 07 2018 3:50PM 06/08/2018 Jun 08 2018 10:25AM [facility] Electrophysiology Study Admit Source Facility Department Emergency department [facility] Physician and Clinical Staff Initial Phani Arenas Sales Receptionist Terrie Rizzo RN Sales Receptionist Mich Evans RN Other cathlab, cathlab Recorder Ty Denton RCIS(BS) Scrub Kelly Garza RT(R) Procedures Performed Procedure Location (Site) Vessel Name Coronary Angiograms LCA Left Coronary Coronary Angiograms RCA Right Coronary L Heart Cath Equipment Time Peanut Roaster Description Size Mfg Part Number Used/Scraped TRANSDUCER, TRUWAVE [id number] 10:26 THORPE MURO * Used W/STOCKCOCK *[id number] *[id number] *[id number] 10:26 [employer] BLANKET,WARM AIR CCL * Used *[id number] 10:26 [employer] PACK, CCL CUSTOM * Used *[id number] 10:26 [employer] SUPPORT, ARTERIAL ADULT [id number] *[id number] Used BAND, RADIAL COMPRESSION TR [id number] 12:31 [employer] 24CM Used SHORT 24 *[id number] SHEATH, FR6 RADIAL PRELUDE 10:26 [employer] FR 6 [id number] Used EASE 11CM [id number] 10:26 [employer] WIRE, EXCHANGE 260CM 3MMJ 260CM Used *[id number] 10:26 NAMIC MANIFOLD, 4 PORT * Used *[id number] 10:26 [employer]COMED OMNIPAQUE, 350 MG, 150ML 150ML [id number] Used History: Current Medications Medication Dosage/Unit Route Frequency Last Date/Time Taken Statins (any) Beta Familia ASA History: Allergies Allergy Reaction No Known Allergies Nausea History: Risk Factors Family History of Hypertension Dyslipidemia Previous SC Previous Heart Failure Premature CAD Yes Yes Yes No No Prior Valve Prior PCI Prior CABG Surgery No No No Cerebrovascular Peripheral Artery Chronic Lung On Dialysis Diabetes Disease Disease Disease No No No No No History: Symptoms/Diagnosis Selection Items Chest pain History: Stress Tests Stress or Imaging Studies Performed No History: Other Current Smoker Method Quit Packs a Day Years Used Pack Years No Cigarettes 18 Years Ago 1 15 15 Labs Hgb (g/dl) Hct (%) WBC (l/cumm) Platelets (thousands) 11.60-17.00 35.00-51.00 4.00-11.00 150.00-450.00 13.5 40 4.6 186 Glucose (mg/dl) BUN (mg/dl) Creatinine (mg/dl) BUN:Creatinine (1:x) 74.00-106.00 7.00-18.00 0.50-1.30 10.00-20.00 98 10 1.0 10 Na (meq/l) K (meq/l) 136.00-145.00 3.50-5.10 140 4.2 INR (PTT:PT) 0.90-1.10 1 Troponin I (ng/ml) CPK (u/l) CPK-MB (ng/ML) 0.02-0.05 26.00-308.00 0.50-3.60 3.86 77.8 12.5 Medication Medication Total Dose (Bolus/Oral) Medication Total Dosage/Unit 1% XYLOCAINE 2 mL FENTANYL 50 mcg HEPARIN 5000 units NTG (IC) 200 mcg VERSED 2 mg Medications (Bolus/Oral) Medication Time Given Dosage/Unit Administered By Reason 06/08/2018 12:25:53 VERSED 2 mg Mich Evans 2 mg VERSED given in lab by Mich Evans RN in Left Antecubital via Peripheral IV. Ordered by Phani Ramos. 06/08/2018 12:25:59 FENTANYL 50 mcg Mich Evans 50 mcg FENTANYL given in lab by Mich Evans RN in Right Antecubital via Peripheral IV. Ordered by Phani Wynn. 06/08/2018 12:26:05 1% XYLOCAINE 2 mL Phani Wynn 2 mL 1% XYLOCAINE given in lab by Phani Wynn in Right Radial via Subcutaneous. Ordered by Phani Wynn. 06/08/2018 12:27:14 NTG (IC) 200 mcg Phani Wynn 200 mcg NTG (IC) given in lab by Phani Wynn in Right Radial via Intra-arterial. Ordered by Phani Wynn. 06/08/2018 12:27:40 HEPARIN 5000 units Mich Evans 5000 units HEPARIN given in lab by Ferlitto, Mich, RN in Left Antecubital via Peripheral IV. Ordered by Phnai Wynn. Medication (Drip) Medication Time Given Dosage/Unit Concentration/Unit Diluent (ml) Solution 06/08/2018 12:02:48 IV Solutions 0 mL (IV) 500 NaCl .9 PM Patient arrived on IV Solutions in Left Antecubital via Peripheral IV. Pump/Drip Flow = 20 ml/hr usin g NaCl .9. Ordered by Phani Wynn. Initial Case Assessment Cardiovascular HR Rhythm NIBP Chest Pain 58 nsr 174/84 0 Edema Present Skin color Skin None Normal Warm Dry Circulatory - Right Pulses Dorsalis Pedis Femoral Radial 3 3 3 Scale (0,1,2,3,4,d) Scale (0,1,2,3,4,d) Neurological State Oriented to time-place- Alert Moves all extremities person Respiration - General Respiration Rate SpO2 (%) (B/min) 15 97 Final Case Assessment Cardiovascular HR Rhythm NIBP Chest Pain 54 nsr 135/65 0 Edema Present Skin color Skin None Normal Warm Dry Circulatory - Right Pulses Dorsalis Pedis Femoral Radial 3 3 3 Scale (0,1,2,3,4,d) Scale (0,1,2,3,4,d) Neurological State Oriented to time-place- Alert Moves all extremities person Respiration - General Respiration Rate SpO2 (%) (B/min) 15 97 Chronological Log Time Study Chronological Log 10:53:08 Patient arrived via Bed. 10:53:10 Patient Name, D.O.B, / Armband Verified By R.N. 10:53:11 Consent signed by the physician and the patient and verified by the [facility] staff. 10:53:12 Pre-op and post- op instructions given; patient acknowledges understanding of instructions. 10:53:13 Verbal Stimulation=2 Physical Stimulation=2 Airway=2 Respiration=2 TOTAL=8. (0=absent, 1=li mited, 2=present) 10:54:20 STEMI ALERT CALLED, Patient taken back to [facility]. 12:02:38 Patient arrived via Bed. 12:02:39 Patient Name, D.O.B, / Armband Verified By R.N. 12:02:40 Consent signed by the physician and the patient and verified by the [facility] staff. 12:02:40 Pre-op and post- op instructions given; patient acknowledges understanding of instructions. 12:02:42 Presedation assessment performed by [facility] RN. 12:02:42 Allens test performed on the right radial and ulnar artery. POSITIVE. 12::43 Immediate Presedation assesment performed by physician. 12:02:43 Patient has been NPO for More than 6Hrs. 12:02:44 Skin Breakdown-none per patient 12:02:44 Patient Warmer Placed on the Table. 12:02:45 Nunu Prominences Protected 12:02:48 A # 20 IV was noted in the Antecubital (left). Grade = 0 Patient arrived on IV Solutions in Left Antecubital via Peripheral IV. Pump/Drip Flow = 20 ml/h r using NaCl .9. Ordered 12::48 by Phani Wynn. 12:02:49 History and physical on the chart or being dictated. Vitals capture started with the following parameters, Patient=Adult, Interval=5 min, Initial Pr giwpki=281 mmHg, 12:10:12 Deflation Rate=5 mmHg, Cuff placed on Left Arm 12:11:34 HR=62 bpm, TDLR=965/84 mmhg, SpO2=97.0 %, Resp=11 B/min, Pain=0, Hansel=10, Roberts=2 12:11:59 Reference ECG taken Assessment: Initial Case, HR=58 BPM, Rhythm=nsr, RPPB=257/84 mmhg, Chest Pain=0, Edema=None, Co jaky=Normal, Skin = Warm, Dry 12:12:14 Right Pulses: Anjum Ped=3, Femoral=3, Radial=3 Neurological: State=Alert, Ox3, MORENO Respiration: Resp=15 B/min, SpO2=97 % 12:15:58 HR=60 bpm, PEMD=894/96 mmhg, SpO2=98.0 %, Resp=22 B/min, Roberts=2 12:18:54 MD paged 12:19:26 MD responded 12:20:59 HR=60 bpm, WMTQ=766/82 mmhg, SpO2=98.0 %, Resp=13 B/min, Pain=0, Hansel=10, Roberts=2 12:21:45 Pressure channel 1 zeroed. 12:22:00 MD arrived. 12:22:03 Contrast Scanned 12:22:04 Immediate Presedation assesment performed by physician. Time Out. Correct patient, correct procedure, correct physician, labs, allergies, and equipment verified with labor trainer 12:23:33 team present. Fire risk assesment completed (see hard stop sheet for coding). Time Out Conc urred by MD and individual staff in procedure. 12:25:53 2 mg VERSED given in lab by Mich Evans, ROBERTO in Left Antecubital via Peripheral IV. Order ed by Phani Wynn. 12:25:59 50 mcg FENTANYL given in lab by Mich Evans RN in Right Antecubital via Peripheral IV. Ordered by Phani Wynn. 12:26:00 HR=57 bpm, KHFX=879/72 mmhg, SpO2=95.0 %, Resp=11 B/min, Pain=0, Hansel=10, Roberts=2 12:26:05 Case Start 12:26:05 2 mL 1% XYLOCAINE given in lab by Phani Wynn in Right Radial via Subcutaneous. Ordered by Phani Wynn. 12:26:45 Access site was Right Radial Artery . A SHEATH, FR6 RADIAL PRELUDE EASE 11CM FR 6 was advanced into the Radial (right) using the Perc utaneous 12::51 technique. 12:27:05 In the Radial (right) the SHEATH, FR6 RADIAL PRELUDE EASE 11CM FR [address] by Phani Wynn. 12:27:14 200 mcg NTG (IC) given in lab by Phani Wynn in Right Radial via Intra-arterial. Ordered by Phani Wynn. A JR 5.0 INFINITI CATHETER FR 5 was advanced over a wire. OMNIPAQUE, 350 MG, 150ML 150ML was ed for ::27 injections. 12:27:40 5000 units HEPARIN given in lab by Mich Evans RN in Left Antecubital via Peripheral IV . Ordered by Phani Wynn. Recorded Pressure: LV, Ao, HR=55, Condition=Condition 1 12:29:00 (Left Ventricle) LV 103/2/8, (Aorta) Ao 92/41/62 12:29:16 The RCA was injected and visualized at various angles. OMNIPAQUE, 350 MG, 150ML 150ML used . After removing the current catheter a JL 3.5 INFINITI CATHETER FR 5 was advanced over a WIRE, E XCHANGE 260CM 12:29:41 3MMJ 260CM. 12:30:58 The LCA was injected and visualized at various angles. OMNIPAQUE, 350 MG, 150ML 150ML used . 12:31:01 HR=57 bpm, NYXO=932/61 mmhg, SpO2=93.0 %, Resp=15 B/min, Pain=0, Hansel=10, Roberts=2 Recorded Pressure: Ao, HR=55, Condition=Condition 1 12:31:35 (Aorta) Ao 103/28/57 Recorded Pressure: Ao, HR=58, Condition=Condition 1 12:32:24 (Aorta) Ao 116/56/80 12:35:54 HR=57 bpm, OTML=378/65 mmhg, SpO2=93.0 %, Resp=15 B/min, Pain=0, Hansel=10, Roberts=2 12:36:39 Catheter was removed 12:36:56 Case End (Physician broke scrub) Assessment: Final Case, HR=54 BPM, Rhythm=nsr, RWNP=334/65 mmhg, Chest Pain=0, Edema=None, [place] r=Normal, Skin = Warm, Dry 12:37:00 Right Pulses: Anjum Ped=3, Femoral=3, Radial=3 Neurological: State=Alert, Ox3, MORENO Respiration: Resp=15 B/min, SpO2=97 % 12:37:10 Catheter(s) removed without difficulty Radial Compression Device Used. 10 mLs of air placed in BAND, RADIAL COMPRESSION TR SHORT 24 24 CM. Affected 12:37:14 hand 95 % O2 saturation. 12:37:22 Sterile dressing applied to site 12:37:22 No case complications noted. 12:37:23 Cine recording checked. 12:37:24 Bedside Report will be given. 12:37:28 A Left Heart Cath was performed. 12:40:55 HR=54 bpm, DNJY=505/62 mmhg, SpO2=95.0 %, Resp=14 B/min, Pain=0, Hansel=10, Roberts=2 12:49:00 Patient moved to stretcher End Study - Contrast Media Used In Study Contrast Total Opened (mL) Total Used (mL) Total Wasted (mL) Omnipaque 350 60 60 0 End Study - Maximum Contrast Load Max Contrast Load (mL) 375.0 End Study - Radiation Exposure Fluoro Time Fluoro Dose (mGy) Cine Dose (uGym2) (minutes) 1.9 4749 1560 End Study - Patient Disposition Complications Transferred To Interventional Outcome No [facility] Holding No attempt made
[2018-06-08] MEDS ORDERED: Iohexol 350 MG/ML 100 ML Vial (for Cath Lab) IVCONTRAST ONE (13:46)
--- NOTE | 2018-06-08 20:49 | ECHRPT ---
Indication: CONCLUSIONS The left ventricular systolic function is hyperdynamic with an estimated ejection fraction in the ra nge of 65- 70%. Normal left ventricular size. Wall thickness is normal. No regional wall motion abnormalities are present. Aortic valve sclerosis is present. BP: / HR: Rhythm: Sinus MEASUREMENTS (Male / Female) Normal Values Technical Quality:Poor 2D ECHO LV Diastolic Diameter PLAX 4.8 cm 4.2 - 5.9 / 3.9 - 5.3 cm LV Systolic Diameter PLAX 3.1 cm IVS Diastolic Thickness 0.9 cm 0.6 - 1.0 / 0.6 - 0.9 cm LVPW Diastolic Thickness 0.9 cm 0.6 - 1.0 / 0.6 - 0.9 cm LV Relative Wall Thickness 0.4 LVOT Diameter 2.0 cm LV Ejection Fraction MOD 4C 67.2 % LV Ejection Fraction 4C AL 67.5 % M-MODE Aortic Root Diameter MM 2.5 cm LA Systolic Diameter MM 3.1 cm LA Ao Ratio MM 1.2 AV Cusp Separation MM 1.5 cm DOPPLER AV Peak Velocity 103.0 cm/s AV Peak Gradient 4.2 mmHg LVOT Peak Velocity 98.2 cm/s LVOT Peak Gradient 3.9 mmHg AV Area Cont Eq pk 3.0 cm MV Area PHT 1.7 cm Mitral E Point Velocity 54.3 cm/s Mitral A Point Velocity 69.6 cm/s Mitral E to A Ratio 0.8 LV E' Lateral Velocity 6.1 cm/s Mitral E to LV E' Lateral Ratio 8.8 LV E' Septal Velocity 5.4 cm/s Mitral E to LV E' Septal Ratio 10.1 PV Peak Velocity 71.9 cm/s PV Peak Gradient 2.1 mmHg FINDINGS LEFT VENTRICLE The left ventricular systolic function is hyperdynamic with an estimated ejection fraction in the ra nge of 65- 70%. Normal left ventricular size. Wall thickness is normal. No regional wall motion abnormalities are present. RIGHT VENTRICLE Normal right ventricular size and systolic function. LEFT ATRIUM The left atrial size is normal. RIGHT ATRIUM The right atrial size is normal. ATRIAL SEPTUM Normal atrial septal thickness without atrial level shunting by limited color doppler interrogation. AORTA The aortic root and proximal ascending aorta are normal in size on limited imaging. MITRAL VALVE Structurally normal mitral valve. No mitral valve stenosis or regurgitation. AORTIC VALVE Trileaflet aortic valve. Aortic valve sclerosis is present. TRICUSPID VALVE Structurally normal tricuspid valve. No tricuspid valve stenosis or regurgitation. PULMONARY VALVE The pulmonary valve is not well visualized. VESSELS The inferior vena cava is normal in size. PERICARDIUM No pericardial effusion. Kelechi Anaya MD, FACC (Electronically Signed) Final Date:08 June 2018 20:48
[2018-06-09 05:48] LABS: Hematocrit 37.8 % (39.0-51.0); Hemoglobin 12.7 gm/dL (13.0-17.0); Mean Corpuscular HGB Conc 33.5 % (32.0-36.0); Mean Corpuscular Volume 86.6 fL (80.0-100.0); Mean Platelet Volume 9.4 fL (7.0-11.0); Platelet Count 173 th/mm3 (150-450); Red Blood Count 4.36 mil/mm3 (4.50-5.90); Red Cell Distribution Width 13.9 % (11.6-17.2); White Blood Count 6.6 th/mm3 (4.0-11.0)
[2018-06-09 08:27] VITALS: O2SAT 97
[2018-06-09] MEDS: Sod Chloride 0.9% Inj 1,000 ML IV.CONT SCH (08:41)
--- NOTE | 2018-06-09 08:46 | P.PNCA ---
Subjective Interval history: No chest pain. No issues with right wrist access site. Medications and Allergies Active Medications: Active Medications Acetaminophen (Tylenol) 650 mg PO Q4H PRN PRN Reason: Temp > 100.4 Al Hydroxide/Mg Hydroxide (Milk Of Magnopal Liq) 30 ml PO Q12H PRN PRN Reason: Mild Constipation Aspirin (Aspirin) 81 mg PO DAILY [facility] Atorvastatin Calcium (Lipitor) 40 mg PO HS [facility] Last Admin: 06/08/18 22:31 Dose: 40 mg Sodium Chloride (Ns Inj) 1,000 mls @ 75 mls/hr IV.CONT .[id number] [facility] Last Admin: 06/09/18 08:41 Dose: Not Given Lisinopril (Prinivil) 5 mg PO BID [facility] Last Admin: 06/08/18 22:30 Dose: 5 mg Miscellaneous (Pill Splitter) 1 each OTHER UNSCH PRN PRN Reason: SEE LABEL COMMENTS Ondansetron HCl (Zofran Inj) 4 mg IV.PUSH Q6H PRN PRN Reason: NAUSEA OR VOMITING Senna/Docusate Sodium (Kimber-Colace) 1 tab PO BID [facility] Last Admin: 06/08/18 22:32 Dose: Not Given Sennosides (Senokot) 17.2 mg PO Q12H PRN PRN Reason: Moderate Constipation Sodium Chloride (Ns Flush) 2 ml IV.FLUSH BID [facility] Last Admin: 06/08/18 22:31 Dose: 2 ml Sodium Chloride (Ns Flush) 2 ml IV.FLUSH UNSCH PRN PRN Reason: FLUSH AFTER USING IV ACCESS Allergies Allergy/AdvReac Type Severity Reaction Status Date / Time No Known Allergies Allergy Verified 06/07/18 13:39 Home Medications Medication Instructions Recorded Confirmed Type lisinopril 5 mg PO BID 01/08/18 06/07/18 History pravastatin 20 mg PO DAILY 01/08/18 06/07/18 History Physical Exam Vital signs: Vital Signs 06/08/18 09:00 06/08/18 09:27 06/08/18 10:00 Temperature 98 F Pulse Rate 54 L 55 L 58 L Respiratory Rate 17 Blood Pressure 153/69 H Pulse Oximetry 98 06/08/18 10:58 06/08/18 14:00 06/08/18 14:39 Temperature 97.8 F Pulse Rate 50 L 53 L Respiratory Rate 17 Blood Pressure 122/59 L Pulse Oximetry 95 98 06/08/18 15:00 06/08/18 16:00 06/08/18 17:00 Temperature 97.7 F Pulse Rate 50 L 56 L 67 Respiratory Rate 17 Blood Pressure 112/52 L Pulse Oximetry 96 06/08/18 18:00 06/08/18 19:00 06/08/18 20:00 Temperature 98.2 F Pulse Rate 71 58 L 61 Respiratory Rate 16 Blood Pressure 136/67 Pulse Oximetry 99 06/08/18 20:49 06/08/18 21:00 06/08/18 22:00 Temperature Pulse Rate 60 68 Respiratory Rate Blood Pressure Pulse Oximetry 95 06/08/18 23:00 06/09/18 00:00 06/09/18 01:00 Temperature 98.2 F Pulse Rate 56 L 66 55 L Respiratory Rate 16 Blood Pressure 132/63 Pulse Oximetry 96 06/09/18 02:00 06/09/18 03:00 06/09/18 04:00 Temperature Pulse Rate 57 L 56 L 55 L Respiratory Rate Blood Pressure Pulse Oximetry 06/09/18 05:00 06/09/18 05:53 06/09/18 08:26 Temperature Pulse Rate 68 62 Respiratory Rate Blood Pressure Pulse Oximetry 97 Intake & Output 06/08/18 06/09/18 06/09/18 18:59 06:59 18:59 Intake Total 1240 / 1240 240 / 240 250 / 250 Output Total 700 / 700 Balance 540 / 540 240 / 240 250 / 250 Weight 168 lb 10.458 oz Intake: IV 1000 / 1000 250 / 250 NS Inj 1,000 ML @ 75 mls/hr IV. 1000 / 1000 CONT .[id number] [facility] Rx#:[id number] Oral 240 / 240 240 / 240 Output: Urine 700 / 700 Other: # Voids 3 Date of Last Bowel Movement 06/07/18 06/07/18 # Bowel Movements 0 Narrative: GENERAL: Well-developed well-nourished. In no acute distress. NECK: No carotid bruits. No JVD. CARDIOVASCULAR: Regular rate and rhythm. No murmur appreciated. RESPIRATORY: No accessory muscle use. Clear to auscultation. Breath sounds equal bilaterally. MUSCULOSKELETAL: No clubbing or cyanosis. No edema. NEUROLOGICAL: Awake and alert. Normal speech. Results 06/09/18 04:41 06/08/18 04:11 Cardiac Enzymes 06/07/18 06/07/18 06/07/18 Range/Units 13:35 16:15 22:40 AST 29 (15-37) U/L CK-MB (CK-2) 12.5 H (0.5-3.6) ng/mL Troponin I 3.30 H* 4.72 H* 3.86 H* (0.02-0.05) ng/mL Coagulation 06/07/18 06/07/18 06/08/18 Range/Units 13:35 21:15 04:11 PT 10.4 (9.8-11.6) sec APTT 25.4 50.6 H D 42.9 H (23.4-31.7) sec 06/09/18 Range/Units 04:41 PT (9.8-11.6) sec APTT 26.4 D (23.4-31.7) sec Lipids 06/08/18 Range/Units 04:11 Triglycerides 113 (42-150) mg/dL Cholesterol 198 (120-200) mg/dL HDL Cholesterol 55.3 (40.0-60.0) mg/dL Cholesterol/HDL Ratio 3.58 Ratio CBC 06/07/18 06/08/18 06/09/18 Range/Units 13:35 04:11 04:41 WBC 7.6 7.6 6.6 (4.0-11.0) th/mm3 RBC 4.49 L 4.63 4.36 L (4.50-5.90) mil/mm3 Hgb 13.4 13.5 12.7 L (13.0-17.0) gm/dL Hct 39.2 40.3 37.8 L (39.0-51.0) % Plt Count 184 186 173 (150-450) th/mm3 Neut # (Auto) 5.7 5.1 (1.8-7.7) th/mm3 Lymph # (Auto) 1.3 1.7 (1.0-4.8) th/mm3 [place] # (Auto) 0.6 0.6 (0.0-0.9) th/mm3 Eos # (Auto) 0.0 0.1 (0.0-0.4) th/mm3 Baso # (Auto) 0.0 0.0 (0.0-0.2) th/mm3 Comprehensive Metabolic Panel 06/07/18 06/08/18 Range/Units 13:35 04:11 Sodium 136 140 (136-145) meq/L Potassium 4.1 4.2 (3.5-5.1) meq/L Chloride 101 105 (98-107) meq/L Carbon Dioxide 31.1 30.9 (21.0-32.0) meq/L BUN 9 10 (7-18) mg/dL Creatinine 1.15 1.09 (0.60-1.30) mg/dL Calcium 8.4 L 8.5 (8.5-10.1) mg/dL AST 29 (15-37) U/L ALT 27 (12-78) U/L Alkaline Phosphatase 61 (45-117) U/L Total Protein 6.6 (6.4-8.2) g/dL Albumin 3.5 (3.4-5.0) g/dL Intake and Output 06/08/18 06/09/18 06/09/18 22:59 06:59 14:59 Intake Total 240 / 240 240 / 240 250 / 250 Output Total 700 / 700 Balance -460 / -460 240 / 240 250 / 250 Intake: IV 250 / 250 Oral 240 / 240 240 / 240 Output: Urine 700 / 700 Other: # Voids 3 Date of Last Bowel Movement 06/07/18 06/07/18 # Bowel Movements 0 Weight 168 lb 10.458 oz - Imaging and Cardiology Imaging: Impressions Chest X-Ray 06/07/18 13:37 CONCLUSION: Negative for acute process Assessment and Plan - Plan 67-year-old male with HTN, HLD, vertigo who presented for chest pain Elevated troponin with mild to moderate nonobstructive CAD by [facility] [place] 06/08/18: Continue medical management with aspirin 81 mg daily. Changed pravastatin to atorvastatin 40 mg with LDL 120. Discharge planning.
[2018-06-09] MEDS: Senna/Docusate Sodium 8.6/50 MG Tablet PO SCH (09:23)
[2018-06-09] MEDS: Lisinopril 5 MG Tablet PO SCH (09:23)
--- NOTE | 2018-06-09 09:44 | P.PNIM ---
Subjective Interval history: pt no cp. ready for dc Physical Exam Vital signs: Last Vital Signs Temp 98.2 F 06/09/18 00:00 Pulse 62 06/09/18 05:53 Resp 16 06/09/18 00:00 BP 132/63 06/09/18 00:00 Pulse Ox 97 06/09/18 08:26 Narrative: heart reg lung cta abds/nt ext no edema Results Labs CBC & Chem 7: 06/09/18 04:41 06/08/18 04:11 Assessment and Plan Plan Mr Hays is a pleasant 67 y/o male with HTN, hyperlipidemia, GERD, and chronic back pain. Pt present to the ED for evaluation of chest pain. Symptoms started yesterday at 4 PM while he was surfing. He describes it as a constant substernal chest pressure which was mild throughout the evening yesterday. Symptoms persisted this morning which prompted evaluation. He reports that he not like himself. He received nitro, 2 sublingual nitroglycerin en route. He reports that symptoms improved from a 6 out of 10 to a 3 out of 10. He also notes that his blood pressure was elevated in the 200/100 range this morning. Patient also reports that he increased his bench press weight recently also. He denies shortness of breath, cough, congestion, nausea, vomiting, abdominal pain, headache, dizziness, blurred vision. Reports extensive family history of coronary artery disease. No other complaints. elevated ckmb/troponin LHC 30percent lad/cx/rca could be component of mild rhabdo from exercise/lifting weights EKG on admission: sinus rhythm with a rate of 64, T wave inversions noted in the septal leads. No ST elevation. dc on melissa/statin/asa HTN Continue home lisinopril 5 mg daily Hyperlipidemia increase statin. GERD Protonix Progress Note: Quality VTE Deep Vein Thrombosis/Pulmonary Embolism Present on Admission: No
[2018-06-09 09:55] VITALS: BP 118/57; RESP 18; TEMP 98.7
[2018-06-09 10:20] VITALS: PULSE 70
== END 2018-06-09 11:07 | disposition home or self-care (01) ==
LOC: NEPE 13:23 → NEDA 15:50 → NEDH 19:45 → HCPC 23:11
PROVIDERS: ADMIT Hospitalist; ATTEND Hospitalist